=== PATIENT | female | born 1990 ===

== ENCOUNTER 2021-10-30 09:33 | Outpatient (CLI) | payer OTHER | END 2021-10-30 10:33 | disposition home or self-care (01) | LOC: PRENATAL 09:33 | PROVIDERS: ATTEND Obstetrics & Gynecology Maternal & Fetal Medicine | DX: Z36.89 Encounter for other specified antenatal screening (principal); O36.80X1 Pregnancy with inconclusive fetal viability, fetus 1; Z3A.15 15 weeks gestation of pregnancy ==

== ENCOUNTER 2021-12-18 09:32 | Outpatient (CLI) | payer OTHER | END 2021-12-18 11:20 | disposition home or self-care (01) | LOC: PRENATAL 09:32 | PROVIDERS: ATTEND Obstetrics & Gynecology Maternal & Fetal Medicine | DX: O35.0XX1 Maternal care for (suspected) central nervous system malformation in fetus, fetus 1 (principal); O35.3XX1 Maternal care for (suspected) damage to fetus from viral disease in mother, fetus 1; O98.512 Other viral diseases complicating pregnancy, second trimester; Z36.89 Encounter for other specified antenatal screening; Z3A.21 21 weeks gestation of pregnancy ==

== ENCOUNTER 2022-03-06 08:59 | Outpatient (CLI) | payer OTHER | END 2022-03-06 10:34 | disposition home or self-care (01) | LOC: PRENATAL 08:59 | PROVIDERS: ATTEND Obstetrics & Gynecology Maternal & Fetal Medicine | DX: O26.849 Uterine size-date discrepancy, unspecified trimester (principal); O35.0XX0 Maternal care for (suspected) central nervous system malformation in fetus, not applicable or unspecified; Z3A.32 32 weeks gestation of pregnancy ==

== ENCOUNTER 2022-03-30 07:39 | Inpatient (IN) | payer OTHER ==
[~2022-03-30] VITALS: Ht 157.5 cm; Wt 85.3 kg
[2022-03-30] MEDS ORDERED: PRENATAL CAPLE1 EAC1 PO (08:17)
[2022-03-30] MEDS ORDERED: TYLENOL EXTRA500 MG PO (08:18)
[2022-03-30] MEDS ORDERED: MOMETASONE FURO17 GM (10:43)
[2022-03-30] MEDS ORDERED: WAL-FEX ALLERG180 MG (10:43)
[2022-03-30] MEDS ORDERED: NASACORT16.9 ML (10:44)
== END 2022-04-01 16:14 | disposition home or self-care (01) | DRG 805 ==
LOC: LDR 07:39 → OB/GYN 07:39
PROVIDERS: ADMIT Student in an Organized Health Care Education/Training Program; ATTEND Student in an Organized Health Care Education/Training Program
PROC: 10E0XZZ Delivery of Products of Conception, External Approach (ICD-10-PCS; principal; 2022-03-30)
PROC: 0KQM0ZZ Repair Perineum Muscle, Open Approach (ICD-10-PCS; 2022-03-30)
PROC: 4A1HXCZ Monitoring of Products of Conception, Cardiac Rate, External Approach (ICD-10-PCS; 2022-03-30)
DX: O70.1 Second degree perineal laceration during delivery (principal); O60.14X0 Preterm labor third trimester with preterm delivery third trimester, not applicable or unspecified; Z37.0 Single live birth; Z3A.35 35 weeks gestation of pregnancy; Z20.822 Contact with and (suspected) exposure to COVID-19